=== PATIENT | female | born 1985 | race Caucasian/White ===

== ENCOUNTER 2017-01-30 06:24 | Inpatient (IN) | payer OTHER ==
[2017-01-26 15:26] VITALS: BMI 48.5
[2017-01-30] MEDS ORDERED: ACETAMINOPHEN INJECTION 100 ML IVPB ONE (07:24)
[2017-01-30] MEDS ORDERED: MIDAZOLAM HCL 2 MG/2 ML SINGLE DOSE VIAL ONE (07:40)
[2017-01-30] MEDS ORDERED: PROPOFOL 20 ML ONE ×2 (07:40)
[2017-01-30] MEDS ORDERED: ePHEDrine SULFATE 50 MG/1 ML AMPULE ONE (07:40)
[2017-01-30] MEDS ORDERED: ROCURONIUM BROMIDE 50 MG/5 ML VIAL ONE (07:40)
[2017-01-30] MEDS ORDERED: LIDOCAINE HCL/PF 2% SDV 5ML VIAL ONE ×2 (07:40→09:08)
[2017-01-30] MEDS ORDERED: PHENYLEPHRINE HCL 10 MG/1 ML SINGLE DOSE VIAL ONE (07:41)
[2017-01-30] MEDS ORDERED: ceFAZolin SODIUM 1 GM VIAL ONE (07:41)
[2017-01-30] MEDS ORDERED: DEXAMETHASONE SOD PHOSPHATE 4 MG/1 ML VIAL ONE ×2 (07:41→08:03)
[2017-01-30] MEDS ORDERED: GLYCOPYRROLATE 0.2 MG/1 ML VIAL ONE (09:17)
[2017-01-30] MEDS ORDERED: NEOSTIGMINE METHYLSULFATE 0.5 MG/ML - 10 ML MDV ONE (09:17)
[2017-01-30] MEDS ORDERED: ESMOLOL HCL 10 ML ONE (09:53)
[2017-01-30] MEDS ORDERED: BUPIVACAINE HCL/PF 0.25% (2.5MG/ML) 10 ML VIAL IJ ONE (10:30)
[2017-01-30] MEDS ORDERED: TRIMETHOBENZAMIDE HCL 200MG/2ML INJ IM PRN (10:38)
[2017-01-30] MEDS ORDERED: PROMETHAZINE HCL 25 MG/1 ML VIAL IVPUSH PRN (10:49)
[2017-01-30] MEDS ORDERED: ONDANSETRON 4 MG/2 ML VIAL IVPUSH PRN (10:49)
[2017-01-30] MEDS ORDERED: LACTATED RINGERS SOLUTION 1,000 ML IV SCH (11:00)
[2017-01-30 11:23] LABS: MCH 27.3 pg (25.7-33.7); MCHC 34.1 g/dl (32.0-36.0); MEAN PLT VOLUME 9.1 fl (7.5-11.1); PLATELET COUNT 219 K/MM3 (134-434); RDW 13.3 % (11.6-15.6); WHITE BLOOD COUNT 9.8 K/mm3 (4.0-10.0)
[2017-01-30 11:49] LABS: ALBUMIN 3.8 g/dl (3.4-5.0); ALK PHOS 81 U/L (45-117); ANION GAP 11 (8-16); BILIRUBIN,TOTAL 0.5 mg/dL (0.2-1.0); CALCIUM 8.8 mg/dL (8.5-10.1); CO2 25 mmol/L (21-32); CREATININE 1.2 mg/dL (0.55-1.02); GLUCOSE,RANDOM 160 mg/dL (74-106); SGOT/AST 31 U/L (15-37); SGPT/ALT 46 U/L (12-78)
[2017-01-30] MEDS ORDERED: METOCLOPRAMIDE HCL INJECTION 10 MG/2 ML VIAL ONE ×2 (12:04→17:53)
[2017-01-30] MEDS ORDERED: METOCLOPRAMIDE HCL INJECTION 10 MG/2 ML VIAL IVPB ONE ×2 (12:15→17:51)
--- NOTE | 2017-01-30 16:27 | HP ---
DATE OF ADMISSION: 01/30/2017 CHIEF COMPLAINT: Morbid obesity. HISTORY OF PRESENT ILLNESS: This patient is a 31-year-old woman with a history of morbid obesity for many years despite multiple attempts at dietary weight loss. She received nutritional, psychological, pulmonary and cardiology clearance prior to undergoing elective sleeve gastrectomy surgery. PAST MEDICAL HISTORY: Noncontributory. PAST SURGICAL HISTORY: Ear surgery. ALLERGIES: Patient has no known allergies, and patient takes no routine medications. REVIEW OF SYSTEMS: General: Awake and alert. Lungs: Within normal limits. Heart: Also within normal limits. Gastrointestinal: No GE reflux is being reported. No vomiting. Musculoskeletal: No reports of any weakness or swelling in lower extremities. PHYSICAL EXAMINATION: General: Awake and alert, in no acute distress. HEENT: No masses palpated. Lungs: Clear bilaterally. Regular sinus rhythm. Abdomen: Remarkable for obesity, otherwise soft, nontender on palpation in all quadrants. Extremities: Show no pitting edema. No swelling, full range of motion. IMPRESSION: Morbid obesity. PLAN: Operating room for laparoscopic vertical sleeve gastrectomy. JERRY MAYERS M.D. 1 [id number]
[2017-01-30] MEDS ORDERED: HYDROmorphone HCL CARPU-JECT 2 MG/1 ML DISP.SYRIN ONE (17:45)
[2017-01-30] MEDS ORDERED: HYDROmorphone HCL CARPU-JECT 2 MG/1 ML DISP.SYRIN IVPUSH ONE (17:49)
[2017-01-30] MEDS: HYDROmorphone HCL CARPU-JECT 1 MG/1 ML DISP.SYRIN IVPB PRN (21:00)
[2017-01-30] MEDS: ENOXAPARIN NA (PORCINE) 40 MG/0.4 ML DISP.SYRIN SQ SCH (21:44)
[2017-01-30] MEDS: METOCLOPRAMIDE HCL INJECTION 10 MG/2 ML VIAL IVPB SCH ×3 (21:44→22:25)
[2017-01-30] MEDS: SODIUM CHLORIDE 1,000 ML IV SCH (22:24)
[2017-01-30] MEDS: FAMOTIDINE 20 MG/50 ML IVPB 50 ML IVPB SCH (22:25)
[2017-01-31] MEDS: METOCLOPRAMIDE HCL INJECTION 10 MG/2 ML VIAL IVPB SCH ×4 (03:19→21:46)
[2017-01-31] MEDS: HYDROmorphone HCL CARPU-JECT 1 MG/1 ML DISP.SYRIN IVPB PRN ×3 (03:19→13:59)
[2017-01-31 07:41] LABS: MCH 27.3 pg (25.7-33.7); MCHC 34.2 g/dl (32.0-36.0); MEAN CELL VOLUME 79.9 fl (80-96); MEAN PLT VOLUME 9.3 fl (7.5-11.1); PLATELET COUNT 205 K/MM3 (134-434); WHITE BLOOD COUNT 9.6 K/mm3 (4.0-10.0)
--- NOTE | 2017-01-31 08:30 | PN ---
Progress Note (short form) - Note Progress Note: Post op day#1.S/P laproscopic gastric sleeve placement under Ga uneventful.Patient stable.No any anesthesia related problem.Patient DC from the anesthesia care.
[2017-01-31 09:09] LABS: ALBUMIN 3.1 g/dl (3.4-5.0); ALK PHOS 64 U/L (45-117); ANION GAP 8 (8-16); BILIRUBIN,TOTAL 0.6 mg/dL (0.2-1.0); CALCIUM 8.5 mg/dL (8.5-10.1); CO2 28 mmol/L (21-32); CREATININE 0.8 mg/dL (0.55-1.02); GLUCOSE,RANDOM 92 mg/dL (74-106); SGOT/AST 28 U/L (15-37); SGPT/ALT 38 U/L (12-78); TOT PROT 6.6 g/dl (6.4-8.2)
[2017-01-31] MEDS: ENOXAPARIN NA (PORCINE) 40 MG/0.4 ML DISP.SYRIN SQ SCH ×2 (09:35→21:45)
[2017-01-31] MEDS: FAMOTIDINE 20 MG/50 ML IVPB 50 ML IVPB SCH ×2 (09:35→21:46)
--- NOTE | 2017-01-31 10:26 | OP ---
DATE OF OPERATION: 01/30/2017 PREOPERATIVE DIAGNOSIS: Morbid obesity. POSTOPERATIVE DIAGNOSIS: Morbid obesity. PROCEDURES PERFORMED: 1. Laparoscopic vertical sleeve gastrectomy. 2. Diagnostic laparoscopy. OPERATING SURGEON: Yordan Garcia MD DRAFTING INSTRUCTOR: Delon Arredondo MD ANESTHESIA: General. EXPECTED BLOOD LOSS: 30 mL. OPERATIVE PROCEDURE: The patient was brought into the operating room and placed on the OR table in supine position. All precautions were taken initially including padding for the back and the feet, and Venodyne boots were placed on both lower extremities. At that point, the abdomen was prepped and draped in the usual manner. A Veress needle was placed in the left upper quadrant, and a pneumoperitoneum established. A No. 12 bladeless trocar was placed to the left upper quadrant. Through that trocar, laparoscopic camera was placed. Under direct vision, a No. 15 bladeless trocar was placed in midline in a supraumbilical position. This was followed by a No. 5 bladeless trocar in the right upper quadrant and No. 5 bladeless trocar below the left costal margin. A Carly liver retractor was then placed to the epigastrium to retract the left lobe of the liver. The patient was then placed in a 20-degree reverse Trendelenburg position. The pylorus was noted on distal stomach and 6 cm was measured proximally from that area. Here on the greater curve, the operating surgeon lifted the stomach toward the anterior abdominal wall as the public relations assistant surgeon retracted the gastrocolic ligament inferiorly. The LigaSure device was used to dissect the gastrocolic ligament off the greater curve of the stomach. This continued in a superior and vertical direction taking the short gastric vessels off the greater curve of the stomach. This continued until the final short gastric vessel between the proximal fundus of the stomach and the superior pole of the spleen was divided. At this juncture, the No. 40 bougie, which had been placed by Anesthesia, was now advanced toward the pylorus. Using the bougie as a guide on the lesser curve, a series of jeni was performed with the first 2 being backloaded 6 cm in length. This was followed by a series of purple load jeni that were used along the bougie and continued until the final staple was fired in the left upper quadrant and the greater curve was now completely detached from the lesser curve. It should be noted that prior to firing each staple, both the anterior and the posterior sagastume were checked that they were equal, and in the area of the esophagogastric junction approximately 1 to 1.5 cm of serosa remained on the anterior posterior surfaces. At the junction, saline was placed around the staple line. Anesthesia inserted air into the bougie, which showed the entire stomach distended down to the pylorus. No obstruction and no leaks were noted. At this juncture, the greater curve was removed with a No. 15 trocar site, and under direct vision, the No. 15 and No. 12 trocars were closed with endoclosure device with an to prevent bleeding. Under direct vision, all trocars were removed, and pneumoperitoneum was released. All trocar sites then received 0.25% Marcaine and were closed with 4-0 Biosyn in subcuticular fashion. With a number No. 15 trocar, the midline was first closed with 3-0 Vicryl in the subcutaneous tissue followed by 4-0 Biosyn in subcuticular fashion. Dressings were applied. The patient was awoken from anesthesia and transferred out of the operating room to the recovery room in stable condition. Babatunde [id number]
--- NOTE | 2017-01-31 11:47 | PATH ---
Surgical Pathology Report Patient Name: SHASTA HALL [facility]. Rec. #: [id number] /Age/Gender: 1985 (Age: 31) / F Account: [id number] Location: 4 W TELEMETRY U Taken: 01/30/2017 Received: 01/30/2017 Reported: 01/31/2017 Physicians: Yordan Garcia M.D. Specimen(s) Received GREATER CURVATURE STOMACH Clinical History Morbid obesity Final Diagnosis STOMACH, GREATER CURVATURE, LAPAROSCOPIC VERTICAL GASTRIC SLEEVE: PORTION OF STOMACH WITH PATCHY MILD CHRONIC GASTRITIS. IMMUNOSTAIN FOR H. PYLORI IS NEGATIVE FOR ORGANISMS. Electronically Signed Romario Pabon M.D. Gross Description Received in formalin, labeled "greater stomach curvature" is a 81 gram, 16.0 x 4.0 x 3.2 cm portion of stomach with a stapled margin of resection. The serosa is monroe-argueta with minimal attached fat. The mucosa is monroe-pink with normal folds. No mucosal masses are identified. Car Whacker sections are submitted in one cassette. /01/30/2017 [facility]01/30/2017
[2017-01-31] MEDS: SODIUM CHLORIDE 1,000 ML IV SCH (12:58)
[2017-01-31] MEDS ORDERED: OXYCODONE/APAP 5/325MG COMBO TABLET PO PRN (15:40)
--- NOTE | 2017-01-31 15:44 | PN ---
Progress Note (short form) - Note Progress Note: POD#1 Afebrile; VSS P-63-90 BP-132/76 Pt doing well UGI- no leak, no obstruction Wbc-9.6 H/H-12.9/37.8 P- PO clear liquids- 2 oz po tid Encourage ambulation Cont DVT prophylaxis
[2017-01-31] MEDS ORDERED: SODIUM CHLORIDE 1,000 ML IV SCH (15:45)
[2017-01-31] MEDS ORDERED: oxyCODONE HCL 5 MG TABLET ONE (18:14)
[2017-01-31] MEDS ORDERED: ACETAMINOPHEN 325 MG TABLET (FP) ONE (18:15)
[2017-02-01] MEDS: oxyCODONE HCL 5 MG TABLET PO PRN ×2 (01:16→11:32)
[2017-02-01] MEDS: ACETAMINOPHEN 325 MG TABLET (FP) PO PRN ×2 (01:17→11:31)
[2017-02-01] MEDS: METOCLOPRAMIDE HCL INJECTION 10 MG/2 ML VIAL IVPB SCH ×2 (03:16→09:56)
[2017-02-01] MEDS: ENOXAPARIN NA (PORCINE) 40 MG/0.4 ML DISP.SYRIN SQ SCH (09:57)
[2017-02-01] MEDS: FAMOTIDINE 20 MG/50 ML IVPB 50 ML IVPB SCH (10:58)
[2017-02-01 11:52] VITALS: BP 139/86
[2017-02-01 12:43] VITALS: PULSE 84; TEMP 98.4
== END 2017-02-01 12:43 | disposition home or self-care (01) | DRG 621 ==
LOC: JSAMEDAYSX 06:24 → J4W 18:49
PROVIDERS: ADMIT Surgery; ATTEND Surgery
PROC: 0DB64Z3 Excision of Stomach, Percutaneous Endoscopic Approach, Vertical (ICD-10-PCS; principal; 2017-01-30 08:00)
DX: E66.01 Morbid (severe) obesity due to excess calories (principal); Z68.42 Body mass index [BMI] 45.0-49.9, adult
CPT/HCPCS: 36415; 74241-TC; 80053; 84703; 85027; 88305-TC; 94010; 94760